=== PATIENT | female | born 1975 | race Two or more races ===

== ENCOUNTER 2021-05-12 14:05 | Emergency (ER) | payer OTHER ==
[~2021-05-12] VITALS: Ht 162.6 cm; Wt 72.6 kg
[2021-05-12] MEDS ORDERED: SYNAGIS50 MG/0.5 IM (14:47)
[2021-05-12] MEDS ORDERED: ACIPHEX20 MG PO (14:47)
[2021-05-12] MEDS ORDERED: AVALIDE 300-121 EACH PO (14:47)
[2021-05-12] MEDS ORDERED: CIPRO500 MG PO (18:40)
[2021-05-12] MEDS ORDERED: DOLOGEN CAPLET1 EACH PO (18:40)
[2021-05-12] MEDS ORDERED: TAMS0.4C PO (18:40)
== END 2021-05-12 18:51 | disposition home or self-care (01) ==
LOC: ER 14:05
DX: N39.0 Urinary tract infection, site not specified (principal)